=== PATIENT | female | born 1965 | race Two or more races ===

== ENCOUNTER 2020-04-29 19:08 | Emergency (ER) | payer MEDICAID ==
[~2020-04-29] VITALS: Ht 157.5 cm; Wt 82.0 kg
[2020-04-29 20:29] VITALS: BP 110/80
== END 2020-04-29 20:34 | disposition home or self-care (01) ==
LOC: ER 19:08
DX: U07.1 COVID-19 (principal); I10 Essential (primary) hypertension; E11.9 Type 2 diabetes mellitus without complications
CPT/HCPCS: 71045; 87635; 99284; C9803